=== PATIENT | male | born 1950 | race Caucasian/White ===

== ENCOUNTER → 2016-11-06 | Outpatient (CLI) | payer MEDICARE | END | disposition disaster alternative care site (69) | LOC: LHSC 16:36 | DX: D12.0 Benign neoplasm of cecum (principal) ==

== ENCOUNTER 2017-04-20 07:48 | Emergency (ER) | payer MEDICARE, OTHER ==
--- NOTE | ~2017-04-20 | ER ---
PATIENT'S NAME: GARO BUTLER [facility] AGE: 67 Y [address] ROOM: [place] [id number] LOCATION: [facility] ADMIT DATE: 04/20/2017 ER/Outpatient Report DISCHARGE DATE: 04/20/2017 FAMILY PHYSICIAN: Maikel Escoto MD ATTENDING PHYSICIAN: Viraj Davis CHIEF COMPLAINT: Right shoulder pain. HISTORY OF PRESENT ILLNESS: Mr. Butler notes that the pain started Thursday afternoon when he reach behind him in the vehicle to try to grab something in the back seat of his car. 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 Last evening, it was aching significantly and he did not take any medication until around 2:00 a.m., he took two ibuprofen and was able to sleep at that time. Today, he came into the ER as he was concerned about the pain and no clinics are open as it is a holiday. He denies any other symptoms at this time. No other complaints. He denies any chest pain, fevers, chills, cough, shortness of breath, numbness, tingling, or weakness. Other than as limited by pain. PAST MEDICAL HISTORY: Documented on the record and reviewed by me. SOCIAL HISTORY: Documented on the record and reviewed by me. MEDICATIONS: Documented on the record and reviewed by me. ALLERGIES: DOCUMENTED ON THE RECORD AND REVIEWED BY ME. REVIEW OF SYSTEMS: Review of systems was performed and negative except as noted in the HPI. PHYSICAL EXAMINATION: VITAL SIGNS: Blood pressure is 145/69, pulse 68, respiratory rate 16, temperature 97.5, SpO2 is 97% on room air. Pain is 2 to 3/10. GENERAL: Age-appropriate male. Upright on exam table. No apparent pain or distress. HEENT: Unremarkable. The right shoulder was examined in great focus. The patient has marked limited range of motion in all locations, but no crepitus on the joint with passive range of motion. No subluxation or laxity is appreciated. The patient has difficulty with internal rotation of the PATIENT'S NAME: GARO BUTLER [facility] AGE: 67 Y [address] ROOM: [place] [id number] LOCATION: [facility] ADMIT DATE: 04/20/2017 ER/Outpatient Report DISCHARGE DATE: 04/20/2017 FAMILY PHYSICIAN: Maikel Escoto MD ATTENDING PHYSICIAN: Viraj Davis shoulder and there is tenderness most prominent along the anterior aspect of the shoulder. Extension at the elbow is painful, but flexion at the elbow is not particularly bothersome to him. The pain is minimally exacerbated with anterior extension of the arm, pronation, and resistance. The chest is with even unlabored respirations. The other extremities are unremarkable. LABORATORY DATA AND X-RAYS: None. IMPRESSION: Right-sided shoulder strain. EMERGENCY DEPARTMENT COURSE: The patient was seen and evaluated at bedside. He was feeling much better after our discussion. I do not think this is related to the heart. He has an appointment tomorrow to see orthopedic surgeon regarding his chronic knee pain. I am recommending close followup with them then. I have discussed scheduled anti-inflammatories with Tylenol and ibuprofen and provided a prescription of tramadol for any breakthrough pain should it be required. All questions were answered and patient was discharged. MD CHAD NICOLE/kathyl /[id number] P d: 04/20/17 1512 t: 04/29/17 1055, OUTPATIENT REPORT
== END 2017-04-20 08:43 | disposition disaster alternative care site (69) ==
LOC: GMED 07:48
DX: S46.911A Strain of unspecified muscle, fascia and tendon at shoulder and upper arm level, right arm, initial encounter (principal); X50.1XXA Overexertion from prolonged static or awkward postures, initial encounter